=== PATIENT | male | born 1995 | race Caucasian/White ===

== ENCOUNTER 2017-04-06 08:58 | Emergency (ER) | payer OTHER ==
[~2017-04-06] VITALS: Ht 170.2 cm; Wt 86.2 kg
[2017-04-06] MEDS ORDERED: ULTRAM 50MG TAB50 MG PO (10:32)
[2017-04-06] MEDS ORDERED: CYCLOBENZAPRINE5 MG PO (10:32)
== END 2017-04-06 10:36 | disposition home or self-care (01) ==
LOC: ER 08:58
DX: S16.1XXA Strain of muscle, fascia and tendon at neck level, initial encounter (principal); S00.83XA Contusion of other part of head, initial encounter; M79.602 Pain in left arm; Z88.0 Allergy status to penicillin; V43.52XA Car driver injured in collision with other type car in traffic accident, initial encounter; Y93.I9 Activity, other involving external motion; Y92.488 Other paved roadways as the place of occurrence of the external cause; Y99.8 Other external cause status